=== PATIENT | female | born 1940 | race Caucasian/White ===

== ENCOUNTER → 2018-02-01 17:25 | Outpatient (CLI) | payer MEDICARE, OTHER, SELFPAY | PROVIDERS: Referring Provider Nurse Practitioner Adult Health; Visit Provider Nurse Practitioner Adult Health | DX: R82.998 Other abnormal findings in urine (principal) | CPT/HCPCS: 87086; 87088; 87186 ==

== ENCOUNTER → 2018-02-16 13:41 | Outpatient (CLI) | payer MEDICARE, OTHER, SELFPAY | PROVIDERS: Family Provider Family Medicine; PCP Family Medicine; Referring Provider Nurse Practitioner Adult Health; Visit Provider Nurse Practitioner Adult Health | DX: N39.0 Urinary tract infection, site not specified (principal) | CPT/HCPCS: 87086; 87088; 87186 ==

== ENCOUNTER → 2018-03-06 13:05 | Outpatient (CLI) | payer MEDICARE, OTHER, SELFPAY ==
[2018-03-06 13:17] VITALS: BP 154/62; PULSE 57; RESP 16; TEMP 36.1; O2SAT 96; BMI 31.6
== END ==
PROVIDERS: Family Provider Family Medicine; PCP Family Medicine; Visit Provider Nurse Practitioner Adult Health
DX: N30.00 Acute cystitis without hematuria (principal)
CPT/HCPCS: 96365; J7050; A4216

== ENCOUNTER → 2018-03-07 13:08 | Outpatient (CLI) | payer MEDICARE, OTHER, SELFPAY ==
[2018-03-06 13:17] VITALS: BMI 31.6
[2018-03-07 13:25] VITALS: BP 166/60; PULSE 70; RESP 16; TEMP 36.7; BMI 31.6
== END ==
PROVIDERS: Family Provider Family Medicine; PCP Family Medicine; Visit Provider Nurse Practitioner Adult Health
DX: N30.00 Acute cystitis without hematuria (principal)
CPT/HCPCS: 96365; J7050; A4216

== ENCOUNTER → 2018-03-08 13:05 | Outpatient (CLI) | payer MEDICARE, OTHER, SELFPAY ==
[2018-03-06 13:17] VITALS: BMI 31.6
[2018-03-07 13:25] VITALS: BMI 31.6
[2018-03-08 13:23] VITALS: BP 117/85; PULSE 55; RESP 18; TEMP 36.3; O2SAT 96; BMI 31.6
== END ==
PROVIDERS: Family Provider Family Medicine; PCP Family Medicine; Referring Provider Nurse Practitioner Adult Health; Visit Provider Nurse Practitioner Adult Health
DX: N30.00 Acute cystitis without hematuria (principal); R10.9 Unspecified abdominal pain
CPT/HCPCS: 96365; J7050; A4216

== ENCOUNTER → 2018-03-09 13:03 | Outpatient (CLI) | payer MEDICARE, OTHER, SELFPAY ==
[2018-03-06 13:17] VITALS: BMI 31.6
[2018-03-08 13:23] VITALS: BMI 31.6
[2018-03-09 13:11] VITALS: BP 147/81; PULSE 54; RESP 16; TEMP 36; O2SAT 98; BMI 31.6
== END ==
PROVIDERS: Family Provider Family Medicine; PCP Family Medicine; Referring Provider Nurse Practitioner Adult Health; Visit Provider Nurse Practitioner Adult Health
DX: N30.00 Acute cystitis without hematuria (principal)
CPT/HCPCS: 96365; J7050; A4216

== ENCOUNTER → 2018-03-10 10:10 | Outpatient (CLI) | payer MEDICARE, OTHER, SELFPAY ==
[2018-03-06 13:17] VITALS: BMI 31.6
[2018-03-09 13:11] VITALS: BMI 31.6
[2018-03-10 11:02] VITALS: BP 164/74; PULSE 51; RESP 16; TEMP 36.3; O2SAT 97
== END ==
LOC: MEDOUTP 10:10 → MS3 10:23 → MEDOUTP 10:53
PROVIDERS: Family Provider Family Medicine; PCP Family Medicine; Referring Provider Nurse Practitioner Adult Health; Visit Provider Nurse Practitioner Adult Health
DX: N30.00 Acute cystitis without hematuria (principal)
CPT/HCPCS: 96365

== ENCOUNTER 2018-03-11 10:08 | Outpatient (CLI) | payer MEDICARE, OTHER, SELFPAY ==
[2018-03-06 13:17] VITALS: BMI 31.6
[2018-03-09 13:11] VITALS: BMI 31.6
[2018-03-11] MEDS: 0.9% NaCl Peripheral Flush Adult/Peds IV ×3 (10:46→11:58)
[2018-03-11 10:54] VITALS: BP 147/73; PULSE 53; RESP 18; TEMP 37.2; O2SAT 96
== END 2018-03-11 12:00 | disposition home or self-care (01) ==
LOC: MEDOUTP 10:09 → MS3 10:09
PROVIDERS: Family Provider Family Medicine; PCP Family Medicine; Referring Provider Nurse Practitioner Adult Health; Visit Provider Nurse Practitioner Adult Health
DX: N30.00 Acute cystitis without hematuria (principal)
CPT/HCPCS: 96365; A4216

== ENCOUNTER → 2018-03-12 13:10 | Outpatient (CLI) | payer MEDICARE, OTHER, SELFPAY ==
[2018-03-06 13:17] VITALS: BMI 31.6
[2018-03-09 13:11] VITALS: BMI 31.6
[2018-03-12 13:30] VITALS: BMI 31.6
== END ==
PROVIDERS: Family Provider Family Medicine; PCP Family Medicine; Referring Provider Nurse Practitioner Adult Health; Visit Provider Nurse Practitioner Adult Health
DX: N30.00 Acute cystitis without hematuria (principal)
CPT/HCPCS: 96365; J7050; A4216

== ENCOUNTER → 2018-03-13 13:14 | Outpatient (CLI) | payer MEDICARE, OTHER, SELFPAY ==
[2018-03-06 13:17] VITALS: BMI 31.6
[2018-03-12 13:30] VITALS: BMI 31.6
[2018-03-13 13:37] VITALS: BP 145/62; PULSE 55; RESP 16; TEMP 36.4; O2SAT 99; BMI 31.6
== END ==
PROVIDERS: Family Provider Family Medicine; PCP Family Medicine; Referring Provider Nurse Practitioner Adult Health; Visit Provider Nurse Practitioner Adult Health
DX: N30.00 Acute cystitis without hematuria (principal)
CPT/HCPCS: 96365; J7050

== ENCOUNTER → 2018-03-14 13:15 | Outpatient (CLI) | payer MEDICARE, OTHER, SELFPAY ==
[2018-03-06 13:17] VITALS: BMI 31.6
[2018-03-13 13:37] VITALS: BMI 31.6
[2018-03-14 13:26] VITALS: BP 132/63; PULSE 56; RESP 18; TEMP 36.2; O2SAT 96; BMI 31.6
== END ==
PROVIDERS: Family Provider Family Medicine; PCP Family Medicine; Referring Provider Nurse Practitioner Adult Health; Visit Provider Nurse Practitioner Adult Health
DX: N30.00 Acute cystitis without hematuria (principal)
CPT/HCPCS: 96365; J7050; A4216

== ENCOUNTER → 2018-03-15 13:09 | Outpatient (CLI) | payer MEDICARE, OTHER, SELFPAY ==
[2018-03-06 13:17] VITALS: BMI 31.6
[2018-03-14 13:26] VITALS: BMI 31.6
[2018-03-15 13:28] VITALS: BP 136/68; PULSE 52; RESP 16; TEMP 36.1; O2SAT 98; BMI 31.6
== END ==
PROVIDERS: Family Provider Family Medicine; PCP Family Medicine; Referring Provider Nurse Practitioner Adult Health; Visit Provider Nurse Practitioner Adult Health
DX: N30.00 Acute cystitis without hematuria (principal)
CPT/HCPCS: 96365; J7050; A4216

== ENCOUNTER → 2020-10-22 | Outpatient (CLI) | payer MEDICARE, OTHER, SELFPAY ==
[2020-10-22 15:18] LABS: Mucous, Urine 0 SEEN /hpf (<or=2+)
[2020-10-22 15:31] LABS: Color, Urine Yellow (Yellow); Glucose, Dipstick Normal (Normal); Ketone-Dipstick Negative (Negative); Leukocyte Esterase-Dipstick 500 /ul (Negative); Nitrite-Dipstick Negative (Negative); Occult Blood-Urine 50 /ul (Negative); Protein-Dipstick 30 mg/dl (Negative); Specific Gravity, Urine 1.015 (1.002-1.030); Urine Bilirubin Dipstick Negative (Negative); Urine Clarity Cloudy (Clear); Urine Urobilinogen Normal (Normal)
[2020-10-22 15:55] LABS: Bacteria 3+ /hpf (None Seen); Red Blood Cells-Urine 0-5 SEEN /hpf (0-5); Squamous Epithelial Cells - UA 0-5 SEEN /hpf (5-10); White Blood Cells >100 SEEN /hpf (0-5)
== END | disposition home or self-care (01) ==
PROVIDERS: PCP Family Medicine; Referring Provider Nurse Practitioner Adult Health; Visit Provider Nurse Practitioner Adult Health
DX: R31.21 Asymptomatic microscopic hematuria (principal)
CPT/HCPCS: 81001